=== PATIENT | male | born 1960 | race American Indian/Alaskan Native ===

== ENCOUNTER 2017-03-29 13:54 | Emergency (ER) | payer MEDICARE | END 2017-03-30 01:03 | disposition left against medical advice (07) | LOC: ED 13:54 | DX: R45.851 Suicidal ideations (principal); Z53.21 Procedure and treatment not carried out due to patient leaving prior to being seen by health care provider ==

== ENCOUNTER 2017-03-30 18:51 | Emergency (ER) | payer MEDICARE ==
[2017-03-30 19:39] VITALS: BP 139/86
== END 2017-03-31 04:36 | disposition left against medical advice (07) ==
LOC: ED 18:51
DX: M79.609 Pain in unspecified limb (principal); Z53.21 Procedure and treatment not carried out due to patient leaving prior to being seen by health care provider

== ENCOUNTER 2017-03-31 08:15 | Emergency (ER) | payer MEDICARE ==
[2017-03-31 09:33] VITALS: BP 164/91
--- NOTE | 2017-03-31 12:16 | Emergency Department Report ---
Chief Complaint: Extremity Injury, Lower Stated Complaint: LEG/FOOT PAIN - HPI History of Present Illness: Mr. Padron has hx of HTN and CVA. He desires to speak with a nursing home social worker. He does not have any acute complaints. He lives in a home whereas he is unable to financally contribute any longer. He desires to see a nursing home social worker. Initial triage included swollen extremities. He does not have this concern. He denies shortness of breath. He desires to see a nursing home social worker. MSE complete. No emergent condition exists. He denies discomfort. He is ambulatory with walker. - Exam Vital Signs: Vital Signs 03/31/17 09:29 Temperature 98 F Pulse Rate 81 Respiratory 20 Rate Blood Pressure 164/91 O2 Sat by Pulse 95 Oximetry MSE screening note: Focused history and physical exam performed. Due to findings the following was ordered: ED Disposition for MSE Condition: Stable Referrals: PRIMARY CARE, [Primary Care Provider] - 3-5 Days
== END 2017-03-31 13:25 | disposition left against medical advice (07) ==
LOC: ED 08:15
DX: M79.673 Pain in unspecified foot (principal); Z53.21 Procedure and treatment not carried out due to patient leaving prior to being seen by health care provider